=== PATIENT | female | born 1990 | race Caucasian/White ===

== ENCOUNTER 2017-09-20 16:28 | Observation (INO) ==
[2017-09-20 17:01] LABS: Bilirubin,Urine Negative (Negative); Blood,Urine Negative (Negative); Clarity,Urine Cloudy (Clear); Color,Urine Yellow (Yellow); Glucose,Urine (UA) Normal (Normal); Ketones,Urine Negative (Negative); Leukocyte Esterase,Urine Negative (Negative); Nitrite,Urine Negative (Negative); Protein,Urine Trace mg/dL (Neg-Trace); Specific Gravity,Urine 1.025 (1.010-1.025); Urobilinogen,Urine Normal (Normal)
[2017-09-20 17:04] LABS: Bacteria,Urine Many per hpf (None-Few); Squamous Epithelial Cell,Urine Many per lpf (None-Few); WBC,Urine 15-30 per hpf (0-3)
--- NOTE | 2017-09-20 17:10 | Emergency Department Note ---
Disposition Clinical Impression: Abdominal pain Disposition: Admitted As Inpatient Condition: Fair General Adult HPI - General Chief complaint: ED Abdominal Pain Stated complaint: Right flank pain Time Seen by Provider: 09/20/17 17:04 Source: patient - History of Present Illness Pain Scale: 5 - Related Data Home Medications Medication Instructions Recorded Confirmed Ibuprofen [Motrin] 400 mg PO Q6HR PRN 09/20/17 09/20/17 Allergies Allergy/AdvReac Type Severity Reaction Status Date / Time Penicillins Allergy Rash Verified 09/20/17 16:38 Past Medical History - Past Medical History Medical history: Reports: no medical history Psychiatric history: Reports: no psych history - Social History Smoking Status: Current every day smoker Smokeless Tobacco Status: No Alcohol use: Reports: occasionally Drug use: Reports: none Physical Exam - General General appearance: alert, in no apparent distress Course Vital Signs Temperature 97.8 F 09/20/17 16:35 Pulse Rate 98 09/20/17 16:35 Respiratory Rate 16 09/20/17 16:35 Blood Pressure 114/80 09/20/17 16:35 O2 Sat by Pulse Oximetry 98 09/20/17 16:35 Temperature 97.8 F 09/20/17 20:38 Pulse Rate 79 09/20/17 20:38 Respiratory Rate 14 09/20/17 20:38 Blood Pressure 118/77 09/20/17 20:38 O2 Sat by Pulse Oximetry 99 09/20/17 20:38 Oxygen Delivery Oxygen Delivery Room Air Medical Decision Making - Lab Data Result diagrams: 09/20/17 16:39 09/20/17 16:39 Lab Results 09/20/17 09/20/17 09/20/17 Range/Units 16:39 16:39 16:45 WBC 6.3 (4.3-11.1) K/mcL RBC 4.89 (3.82-4.97) M/mcL Hgb 15.0 (11.5-15.4) g/dL Hct 44.8 (35.3-44.9) % MCV 91.6 (83.0-100.0) fL MCH 30.7 (28.0-33.3) pg MCHC 33.5 (31.6-35.5) g/dL RDW 12.7 (11.5-14.5) % Plt Count 237 (140-400) K/mcL MPV 10.3 (9.4-12.4) fL Immature Gran % 0.3 (0-4) % Seg Neutrophils % 65.3 % Lymphocytes % 23.8 % Monocytes % 8.9 % Eosinophils % 1.4 % Basophils % 0.3 % Neutrophils # 4.1 (1.6-8.9) K/mcL Lymphocytes # 1.5 (0.6-4.6) K/mcL Monocytes # 0.6 (0.0-1.3) K/mcL Eosinophils # 0.1 (0.0-0.6) K/mcL Basophils # 0.0 (0.0-0.2) K/mcL Sodium 138 (136-145) mEq/L Potassium 4.2 (3.5-5.1) mEq/L Chloride 104 (98-107) mEq/L Carbon Dioxide 25 (23-29) mEq/L BUN 8 (6-20) mg/dL Creatinine 0.63 (0.60-1.20) mg/dL Est GFR ( Amer) > 60 (> 60) Est GFR (Non-Af Amer) > 60 (> 60) BUN/Creatinine Ratio 13 (6-26) Glucose 91 (70-105) mg/dL Calculated Osmolality 284 (280-300) Calcium 9.6 (8.6-10.3) mg/dL Total Bilirubin 0.4 (0.3-1.0) mg/dL Direct Bilirubin 0.1 (0.0-0.2) mg/dL Indirect Bilirubin 0.3 (0.0-1.2) mg/dL AST 17 (13-39) Units/L ALT 7 (7-52) Units/L Alkaline Phosphatase 60 (34-104) Units/L Serum Total Protein 7.9 (6.4-8.9) g/dL Albumin 5.1 (3.5-5.7) g/dL Globulin 2.8 (2.4-3.5) g/dL Albumin/Globulin Ratio 1.8 (1.1-2.2) Lipase 19 (11-82) Units/L Urine Color Yellow (Yellow) Urine Clarity Cloudy A (Clear) Urine pH 6.0 (5.0-8.0) pH Units Ur Specific [place] 1.025 (1.010-1.025) Urine Protein Trace (Neg-Trace) mg/dL Urine Glucose (UA) Normal (Normal) mg/dL Urine Ketones Negative (Negative) mg/dL Urine Blood Negative (Negative) Urine Nitrite Negative (Negative) Urine Bilirubin Negative (Negative) Urine Urobilinogen Normal (Normal) mg/dL Ur Leukocyte Esterase Negative (Negative) Urine Microscopic RBC 5-15 H (0-3) per hpf Urine Microscopic WBC 15-30 H (0-3) per hpf Ur Squamous Epith Cells Many H (None-Few) per lpf Urine Bacteria Many H (None-Few) per hpf Ur Culture Indicated? NO (NO) Urine Test (Negative) 09/20/17 Range/Units 16:45 WBC (4.3-11.1) K/mcL RBC (3.82-4.97) M/mcL Hgb (11.5-15.4) g/dL Hct (35.3-44.9) % MCV (83.0-100.0) fL MCH (28.0-33.3) pg MCHC (31.6-35.5) g/dL RDW (11.5-14.5) % Plt Count (140-400) K/mcL MPV (9.4-12.4) fL Immature Gran % (0-4) % Seg Neutrophils % % Lymphocytes % % Monocytes % % Eosinophils % % Basophils % % Neutrophils # (1.6-8.9) K/mcL Lymphocytes # (0.6-4.6) K/mcL Monocytes # (0.0-1.3) K/mcL Eosinophils # (0.0-0.6) K/mcL Basophils # (0.0-0.2) K/mcL Sodium (136-145) mEq/L Potassium (3.5-5.1) mEq/L Chloride (98-107) mEq/L Carbon Dioxide (23-29) mEq/L BUN (6-20) mg/dL Creatinine (0.60-1.20) mg/dL Est GFR ( Amer) (> 60) Est GFR (Non-Af Amer) (> 60) BUN/Creatinine Ratio (6-26) Glucose (70-105) mg/dL Calculated Osmolality (280-300) Calcium (8.6-10.3) mg/dL Total Bilirubin (0.3-1.0) mg/dL Direct Bilirubin (0.0-0.2) mg/dL Indirect Bilirubin (0.0-1.2) mg/dL AST (13-39) Units/L ALT (7-52) Units/L Alkaline Phosphatase (34-104) Units/L Serum Total Protein (6.4-8.9) g/dL Albumin (3.5-5.7) g/dL Globulin (2.4-3.5) g/dL Albumin/Globulin Ratio (1.1-2.2) Lipase (11-82) Units/L Urine Color (Yellow) Urine Clarity (Clear) Urine pH (5.0-8.0) pH Units Ur Specific [place] (1.010-1.025) Urine Protein (Neg-Trace) mg/dL Urine Glucose (UA) (Normal) mg/dL Urine Ketones (Negative) mg/dL Urine Blood (Negative) Urine Nitrite (Negative) Urine Bilirubin (Negative) Urine Urobilinogen (Normal) mg/dL Ur Leukocyte Esterase (Negative) Urine Microscopic RBC (0-3) per hpf Urine Microscopic WBC (0-3) per hpf Ur Squamous Epith Cells (None-Few) per lpf Urine Bacteria (None-Few) per hpf Ur Culture Indicated? (NO) Urine Test Negative (Negative) Attestation Statement - Attestation Attestation: I examined this patient and my medical decision-making was reviewed with the Resident Physician. I agree with the documented findings, disposition and treatment plan as described except to the extent set forth below. [id number] time provided Patient arrives with right flank pain. She appears uncomfortable on exam. She has tenderness with palpation to her right lower quadrant and mild rebound. She is unable to jump at bedside without reproduction of pain. I recommended a CT scan of her abdomen and pelvis. I evaluated this patient conjunction with the resident physician Dr. Olivo 17:57: I reassessed the patient. She continues to have right lower quadrant tenderness with rebound. She also has an obturator sign. I did request that the resident physician speak with the on-call surgeon for consultation 19:10: She has returned from the pelvic ultrasound that was recommended by the on-call surgeon. She continues to be symptomatic. She continues to have anorexia and right lower quadrant discomfort. Call again placed to the surgeon
[2017-09-20] MEDS ORDERED: Ketorolac 15 MG/ML VIAL IVP ONE (17:16)
[2017-09-20 17:20] LABS: Basophils % 0.3 %; Eosinophils # 0.1 K/mcL (0.0-0.6); Eosinophils % 1.4 %; Hematocrit 44.8 % (35.3-44.9); Immature Granulocytes % 0.3 % (0-4); Lymphocytes # 1.5 K/mcL (0.6-4.6); Lymphocytes % 23.8 %; Mean Corpuscular HGB Conc 33.5 g/dL (31.6-35.5); Mean Corpuscular Hemoglobin 30.7 pg (28.0-33.3); Mean Corpuscular Volume 91.6 fL (83.0-100.0); Mean Platelet Volume 10.3 fL (9.4-12.4); Monocytes # 0.6 K/mcL (0.0-1.3); Monocytes % 8.9 %; Neutrophils # 4.1 K/mcL (1.6-8.9); Platelet Count 237 K/mcL (140-400); Red Blood Count 4.89 M/mcL (3.82-4.97); Red Cell Distribution Width 12.7 % (11.5-14.5); Segmented Neutrophils % 65.3 %
[2017-09-20] MEDS ORDERED: Ondansetron 4 MG/2 ML VIAL IVP ONE (17:24)
--- NOTE | 2017-09-20 17:25 | Emergency Department Note ---
Disposition Clinical Impression: Abdominal pain Qualifiers: Abdominal location: right lower quadrant Qualified Code(s): R10.31 - Right lower quadrant pain Disposition: Admitted As Inpatient Condition: Fair Referrals: Sloan Paulson DO [Primary Care Provider] - Forms: ED Satisfaction Letter, Work/School Release Time of Disposition: 19:21 Abdominal Pain HPI - General Chief Complaint: ED Abdominal Pain Stated Complaint: Right flank pain Time Seen by Provider: 09/20/17 17:04 Source: patient Mode of arrival: ambulatory Limitations: no limitations - History of Present Illness HPI Narrative: Chioma Oropeza is a 27 year old female presenting with 2 days of constant, progressive right lower quadrant pain. She describes the pain as dull and achey with occasional sharpness. Intensity is 6/10. It radiates into her back. It is improved in certain positions and by compressing the area. Ibuprofen did not help. She admits to anorexia, fever, nausea, vomiting, and diarrhea. She denies chills and shortness of breath. Pain Scale: 5 - Related Data Allergies Allergy/AdvReac Type Severity Reaction Status Date / Time Penicillins Allergy Rash Verified 09/20/17 16:38 Constitutional: Reports: fever. Denies: chills Respiratory: Denies: dyspnea Gastrointestinal: Reports: abdominal pain, nausea, vomiting, diarrhea. Denies: melena, hematochezia Genitourinary: Denies: urgency, dysuria, frequency, hematuria Musculoskeletal: Reports: back pain Abdominal Pain PMH - Past Medical History Medical history: Reports: no medical history Female Surgical History: Reports: Tonsillectomy Psychiatric history: Reports: no psych history - Social History Smoking status: Current every day smoker Alcohol use: Reports: occasionally Drug use: Reports: none Physical Exam - General General appearance: alert, in no apparent distress - Head Head exam: atraumatic, normocephalic - Respiratory Respiratory exam: Present: normal lung sounds bilaterally. Absent: respiratory distress, accessory muscle use - Cardiovascular Cardiovascular exam: Present: regular rate, normal rhythm, normal heart sounds, +S1, +S2 - Abdominal Exam Abdominal exam: Present: soft, guarding, rebound, normal bowel sounds, psoas sign, obturator sign, heel tap sign, Rovsing's sign, tenderness at McBur[place]'s Point. Absent: distention Abdominal tenderness: Present: RLQ, moderate - Neurological Exam Neurological exam: Present: alert, oriented X3 - Psychiatric Psychiatric exam: Present: normal affect, normal mood - Skin Skin exam: Present: warm, dry Course Course Narrative: Patient presents with RLQ pain. Differential of appendicitis vs. kidney stone vs. ovarian pathology. Vital signs without abnormality. Urinalysis, test, CBC, and BMP without significant abnormality. CT abd/pelv without contrast was ordered, but did not show acute pathology. Tramadol and zofran were administered, which lessened the pain to a small degree. Patient continued to exhibit rebound tenderness. Case was discussed with the on-call surgeon, Dr. Strong, who suggested pelvic ultrasound. Transvaginal pelvic US with doppler showed dominant cyst on the right, but was otherwise negative. Dr. Cobb discussed case with Dr. Strong, who accepted the patient to his service. Requested 3A with bed management. Due to the patients continued pain, 25 mcg of fentanyl was administered. Vital Signs Temperature 97.8 F 09/20/17 16:35 Pulse Rate 98 09/20/17 16:35 Respiratory Rate 16 09/20/17 16:35 Blood Pressure 114/80 09/20/17 16:35 O2 Sat by Pulse Oximetry 98 09/20/17 16:35 Temperature 97.8 F 09/20/17 16:35 Pulse Rate 98 09/20/17 16:35 Respiratory Rate 16 09/20/17 16:35 Blood Pressure 114/80 09/20/17 16:35 O2 Sat by Pulse Oximetry 98 09/20/17 16:35 Oxygen Delivery Oxygen Delivery Room Air Abdominal Pain - Medical Records Medical records reviewed: Yes I reviewed the patient's medical records. - Lab Data Lab results reviewed: Yes I reviewed the patient's lab results. Result diagrams: 09/20/17 16:39 09/20/17 16:39 Lab Results 09/20/17 09/20/17 09/20/17 Range/Units 16:39 16:39 16:45 WBC 6.3 (4.3-11.1) K/mcL RBC 4.89 (3.82-4.97) M/mcL Hgb 15.0 (11.5-15.4) g/dL Hct 44.8 (35.3-44.9) % MCV 91.6 (83.0-100.0) fL MCH 30.7 (28.0-33.3) pg MCHC 33.5 (31.6-35.5) g/dL RDW 12.7 (11.5-14.5) % Plt Count 237 (140-400) K/mcL MPV 10.3 (9.4-12.4) fL Immature Gran % 0.3 (0-4) % Seg Neutrophils % 65.3 % Lymphocytes % 23.8 % Monocytes % 8.9 % Eosinophils % 1.4 % Basophils % 0.3 % Neutrophils # 4.1 (1.6-8.9) K/mcL Lymphocytes # 1.5 (0.6-4.6) K/mcL Monocytes # 0.6 (0.0-1.3) K/mcL Eosinophils # 0.1 (0.0-0.6) K/mcL Basophils # 0.0 (0.0-0.2) K/mcL Sodium 138 (136-145) mEq/L Potassium 4.2 (3.5-5.1) mEq/L Chloride 104 (98-107) mEq/L Carbon Dioxide 25 (23-29) mEq/L BUN 8 (6-20) mg/dL Creatinine 0.63 (0.60-1.20) mg/dL Est GFR ( Amer) > 60 (> 60) Est GFR (Non-Af Amer) > 60 (> 60) BUN/Creatinine Ratio 13 (6-26) Glucose 91 (70-105) mg/dL Calculated Osmolality 284 (280-300) Calcium 9.6 (8.6-10.3) mg/dL Total Bilirubin 0.4 (0.3-1.0) mg/dL Direct Bilirubin 0.1 (0.0-0.2) mg/dL Indirect Bilirubin 0.3 (0.0-1.2) mg/dL AST 17 (13-39) Units/L ALT 7 (7-52) Units/L Alkaline Phosphatase 60 (34-104) Units/L Serum Total Protein 7.9 (6.4-8.9) g/dL Albumin 5.1 (3.5-5.7) g/dL Globulin 2.8 (2.4-3.5) g/dL Albumin/Globulin Ratio 1.8 (1.1-2.2) Lipase 19 (11-82) Units/L Urine Color Yellow (Yellow) Urine Clarity Cloudy A (Clear) Urine pH 6.0 (5.0-8.0) pH Units Ur Specific [place] 1.025 (1.010-1.025) Urine Protein Trace (Neg-Trace) mg/dL Urine Glucose (UA) Normal (Normal) mg/dL Urine Ketones Negative (Negative) mg/dL Urine Blood Negative (Negative) Urine Nitrite Negative (Negative) Urine Bilirubin Negative (Negative) Urine Urobilinogen Normal (Normal) mg/dL Ur Leukocyte Esterase Negative (Negative) Urine Microscopic RBC 5-15 H (0-3) per hpf Urine Microscopic WBC 15-30 H (0-3) per hpf Ur Squamous Epith Cells Many H (None-Few) per lpf Urine Bacteria Many H (None-Few) per hpf Ur Culture Indicated? NO (NO) Urine Test (Negative) 09/20/17 Range/Units 16:45 WBC (4.3-11.1) K/mcL RBC (3.82-4.97) M/mcL Hgb (11.5-15.4) g/dL Hct (35.3-44.9) % MCV (83.0-100.0) fL MCH (28.0-33.3) pg MCHC (31.6-35.5) g/dL RDW (11.5-14.5) % Plt Count (140-400) K/mcL MPV (9.4-12.4) fL Immature Gran % (0-4) % Seg Neutrophils % % Lymphocytes % % Monocytes % % Eosinophils % % Basophils % % Neutrophils # (1.6-8.9) K/mcL Lymphocytes # (0.6-4.6) K/mcL Monocytes # (0.0-1.3) K/mcL Eosinophils # (0.0-0.6) K/mcL Basophils # (0.0-0.2) K/mcL Sodium (136-145) mEq/L Potassium (3.5-5.1) mEq/L Chloride (98-107) mEq/L Carbon Dioxide (23-29) mEq/L BUN (6-20) mg/dL Creatinine (0.60-1.20) mg/dL Est GFR ( Amer) (> 60) Est GFR (Non-Af Amer) (> 60) BUN/Creatinine Ratio (6-26) Glucose (70-105) mg/dL Calculated Osmolality (280-300) Calcium (8.6-10.3) mg/dL Total Bilirubin (0.3-1.0) mg/dL Direct Bilirubin (0.0-0.2) mg/dL Indirect Bilirubin (0.0-1.2) mg/dL AST (13-39) Units/L ALT (7-52) Units/L Alkaline Phosphatase (34-104) Units/L Serum Total Protein (6.4-8.9) g/dL Albumin (3.5-5.7) g/dL Globulin (2.4-3.5) g/dL Albumin/Globulin Ratio (1.1-2.2) Lipase (11-82) Units/L Urine Color (Yellow) Urine Clarity (Clear) Urine pH (5.0-8.0) pH Units Ur Specific [place] (1.010-1.025) Urine Protein (Neg-Trace) mg/dL Urine Glucose (UA) (Normal) mg/dL Urine Ketones (Negative) mg/dL Urine Blood (Negative) Urine Nitrite (Negative) Urine Bilirubin (Negative) Urine Urobilinogen (Normal) mg/dL Ur Leukocyte Esterase (Negative) Urine Microscopic RBC (0-3) per hpf Urine Microscopic WBC (0-3) per hpf Ur Squamous Epith Cells (None-Few) per lpf Urine Bacteria (None-Few) per hpf Ur Culture Indicated? (NO) Urine Test Negative (Negative) - Radiology Data Radiology results reviewed: Yes I reviewed the patient's radiology results.
[2017-09-20 17:59] LABS: Alanine Aminotransferase 7 Units/L (7-52); Albumin 5.1 g/dL (3.5-5.7); Albumin/Globulin Ratio 1.8 (1.1-2.2); Alkaline Phosphatase 60 Units/L (34-104); Aspartate Amino Transferase 17 Units/L (13-39); BUN/Creatinine Ratio 13 (6-26); Bilirubin,Direct 0.1 mg/dL (0.0-0.2); Bilirubin,Indirect 0.3 mg/dL (0.0-1.2); Bilirubin,Total 0.4 mg/dL (0.3-1.0); Blood Urea Nitrogen 8 mg/dL (6-20); Calcium 9.6 mg/dL (8.6-10.3); Carbon Dioxide 25 mEq/L (23-29); Chloride 104 mEq/L (98-107); Globulin 2.8 g/dL (2.4-3.5); Glucose 91 mg/dL (70-105); Lipase 19 Units/L (11-82); Osmolality,Calculated 284 (280-300); Potassium 4.2 mEq/L (3.5-5.1); Sodium 138 mEq/L (136-145); Total Protein 7.9 g/dL (6.4-8.9); eGFR For African Americans > 60 (> 60); eGFR For Non-African Americans > 60 (> 60)
[2017-09-20] MEDS ORDERED: *HR* FentaNYL (PF) 100 MCG/2 ML VIAL IVP ONE (19:14)
[2017-09-20] MEDS ORDERED: *HR* OxyCODONE/APAP 10/325 TABLET PO PRN (20:10)
[2017-09-20] MEDS ORDERED: Ondansetron 4 MG/2 ML VIAL IVP PRN (20:10)
[2017-09-20] MEDS ORDERED: 0.9 % Sodium Chloride 1,000 ML IVC SCH (20:15)
--- NOTE | 2017-09-20 20:15 | General Surg History&Physical ---
Date of Encounter: 09/20/17 Time of Encounter: 19:40 Assessment and Plan (1) Abdominal pain Current Visit: Yes Status: Acute The assessment and plan as outlined above was discussed with the patient and/or family members who expressed understanding and agreement. All questions were answered. The patient has right lower quadrant abdominal pain. The white blood cell count is normal and CAT scan demonstrates no evidence of acute appendicitis. Although her history is suggestive of appendicitis, findings could also be consistent with mittelschmerz or ruptured corpus luteum cyst. I discussed this with the patient and the family and I think that 12 hours of observation is warranted with repeat physical examination Qualifiers: Abdominal location: right lower quadrant Qualified Code(s): R10.31 - Right lower quadrant pain History of Present Illness Chief complaint: Right Lower quadrant abdominal pain HPI: Ms. Oropeza is a 27 year old female Who began having abdominal pain this morning. This was sudden in onset. After she developed pain in the right lower quadrant she also had nausea vomiting and diarrhea. Her right lower quadrant abdominal discomfort lasted throughout the day. She sought evaluation in the emergency room. A CAT scan of the abdomen was performed. The CAT scan was essentially negative with no findings in the periappendiceal tissues. There were no findings in the mesentery. No findings in the ovary. White blood cell count was normal. The patient underwent pelvic ultrasound and there does appear to be a 2.5 cm nodule in the right ovary. This may be consistent with a ruptured corpus luteum. The differential diagnosis certainly includes very early appendicitis with no findings on CAT scan or laboratory values. Findings may also be consistent with mittelschmerz or ruptured ovarian cyst. At this point I think a period of observation is warranted. She will be admitted to the hospital and given IV fluids and bowel rest. We will repeat her physical examination laboratory testing in the morning. Past Med Surg Social Fam HX - Past Medical History Medical history: no medical history Psychiatric history: no psych history - Social History Smoking Status: Current every day smoker Smokeless Tobacco Status: No Alcohol use: occasionally Drug use: none Medications and Allergies Ibuprofen [Motrin] 400 mg PO Q6HR PRN 09/20/17 [History] 3 Allergy/AdvReac Type Severity Reaction Status Date / Time Penicillins Allergy Rash Verified 09/20/17 16:38 Review of Systems All systems PM: The remainder of the systems were reviewed and are negative General Surgery Exam Initial Vital Signs Temp Pulse Resp BP Pulse Ox 97.8 F 98 16 114/80 98 09/20/17 16:35 09/20/17 16:35 09/20/17 16:35 09/20/17 16:35 09/20/17 16:35 - General physical appearance well developed, well nourished, no distress - Neck no masses, no bruits, trachea midline, no lymphadectomy, no venous distension - Respiratory normal expansion, normal respiratory effort, clear to percussion, clear to auscultation - Cardiovascular Cardiovascular exam: Present: RRR, no murmurs/rubs/gallops - Abdomen Abdomen general surgery: Present: bowel sounds present, soft Abdominal Tenderness: Present: RLQ (Pain to moderate to deep palpation. No guarding and no rebound. No pain on the left side of the abdomen) - Neurologic Present: CN 2-12 grossly intact, normal coordination, normal sensation - Psychiatric Psychiatric general surgery: Present: appropriate, oriented to person, oriented to place, oriented to time, speech is normal, memory intact Results - Labs 09/20/17 16:39 09/20/17 16:39 Abnormal lab results Urine Clarity Cloudy (Clear) A 09/20/17 16:45 Urine Microscopic RBC 5-15 per hpf (0-3) H 09/20/17 16:45 Urine Microscopic WBC 15-30 per hpf (0-3) H 09/20/17 16:45 Ur Squamous Epith Cells Many per lpf (None-Few) H 09/20/17 16:45 Urine Bacteria Many per hpf (None-Few) H 09/20/17 16:45 All other labs normal. - Imaging CT scan - abdomen: image reviewed (Personally reviewed the CAT scan the abdomen. I cannot identify any findings consistent with acute appendicitis.) US - abdomen: image reviewed (I personally reviewed the ultrasound of the pelvis. She appears to have multiple areas on the right ovary the largest of which is 1.7 cm in size this may be consistent with corpus luteum cyst) - VTE Reasons for not Prescribing Prophylaxis: Treatment not Indicated - Low risk for VTE
[2017-09-20] MEDS: Nicotine 21 MG PATCH.TD24 TD SCH (21:19)
[2017-09-21 08:06] LABS: Basophils % 0.6 %; Eosinophils # 0.1 K/mcL (0.0-0.6); Eosinophils % 1.9 %; Hematocrit 37.5 % (35.3-44.9); Immature Granulocytes % 0.2 % (0-4); Lymphocytes # 1.8 K/mcL (0.6-4.6); Mean Corpuscular HGB Conc 32.8 g/dL (31.6-35.5); Mean Corpuscular Hemoglobin 30.5 pg (28.0-33.3); Mean Corpuscular Volume 93.1 fL (83.0-100.0); Mean Platelet Volume 10.2 fL (9.4-12.4); Monocytes # 0.5 K/mcL (0.0-1.3); Monocytes % 10.7 %; Neutrophils # 2.4 K/mcL (1.6-8.9); Platelet Count 180 K/mcL (140-400); Red Blood Count 4.03 M/mcL (3.82-4.97); Red Cell Distribution Width 12.7 % (11.5-14.5); Segmented Neutrophils % 49.6 %
[2017-09-21] MEDS: Nicotine 21 MG PATCH.TD24 TD SCH (08:13)
[2017-09-21 08:14] LABS: Hemoglobin 12.3 g/dL (11.5-15.4)
[2017-09-21 08:24] LABS: BUN/Creatinine Ratio 16 (6-26); Blood Urea Nitrogen 10 mg/dL (6-20); Calcium 8.4 mg/dL (8.6-10.3); Carbon Dioxide 24 mEq/L (23-29); Chloride 110 mEq/L (98-107); Glucose 81 mg/dL (70-105); Osmolality,Calculated 288 (280-300); Potassium 3.7 mEq/L (3.5-5.1); Sodium 140 mEq/L (136-145); eGFR For African Americans > 60 (> 60); eGFR For Non-African Americans > 60 (> 60)
[2017-09-21 10:57] VITALS: BP 111/73
--- NOTE | 2017-09-21 11:13 | Discharge Summary ---
<Chayito Lujan - Last Filed: 09/21/17 11:10> Date of Encounter: 09/21/17 Time of Encounter: 11:23 - Discharge Diagnosis (1) Abdominal pain Priority: Primary Status: Acute Comments: The patient presented to the emergency department on 09/20/2017 for right lower quadrant abdominal pain. The white blood cell count is normal and CAT scan demonstrates no evidence of acute appendicitis. Although her history is suggestive of appendicitis, findings could also be consistent with mittelschmerz or ruptured corpus luteum cyst. Patient is awake, alert, interactive, afebrile, and appears in no acute distress. Repeat laboratory work shows that the white blood cell count is normal. Repeat physical examination demonstrated mild tenderness in the right lower quadrant. Negative Rovsing's sign. No tenderness at the McBurney's point. Bowel sounds present in all 4 quadrants. Soft. No rigid, guarding, or rebound. Patient tolerates clear liquid diet without any difficulty, nausea, and vomiting. Patient has no other concerns at this time Qualifiers: Abdominal location: right lower quadrant Qualified Code(s): R10.31 - Right lower quadrant pain General Surgery Exam Initial Vital Signs Temp Pulse Resp BP Pulse Ox 97.8 F 98 16 114/80 98 09/20/17 16:35 09/20/17 16:35 09/20/17 16:35 09/20/17 16:35 09/20/17 16:35 - General physical appearance well developed, well nourished, no distress - Eyes PERRL, normal ocular movement - ENT normal mucosa - Neck trachea midline - Respiratory normal expansion, normal respiratory effort, clear to auscultation - Cardiovascular Cardiovascular exam: Present: RRR, no murmurs/rubs/gallops - Abdomen Abdomen general surgery: Present: bowel sounds present, soft, tender (Mild tender to palpation in the RLQ. Significantly improved compare to yesterday). Absent: distended, guarding, rebound, rigid Hernia: Present: none - Integumentary Integumentary general surgery: Present: warm and dry, no abnormal pigmentation - Neurologic Present: CN 2-12 grossly intact - Psychiatric Psychiatric general surgery: Present: appropriate, oriented to person, oriented to place, oriented to time, speech is normal - Hospital Course Hospital course: Ms. Oropeza is a 27 year old female with no significant past medical history who presented to the emergency department on 09/20/2017 complaining of abdominal pain. The patient states that the abdominal pain started that morning and was sudden onset. She describes the pain as constant, sharp, sudden onset, in the right lower quadrant with associated nausea, vomiting, and diarrhea.Her right lower quadrant abdominal discomfort lasted throughout the day. She sought evaluation in the emergency room. A CAT scan of the abdomen was performed and was essentially negative with no findings in the periappendiceal tissues. There were no findings in the mesentery. No findings in the ovary. White blood cell count was normal. The patient underwent pelvic ultrasound and there does appear to be a 2.5 cm nodule in the right ovary. This may be consistent with a ruptured corpus luteum. The differential diagnosis certainly includes very early appendicitis with no findings on CAT scan or laboratory values. Findings may also be consistent with mittelschmerz or ruptured ovarian cyst. Patient was admitted to the hospital for observation and given IV fluids and bowel rest. Repeat physical examination and laboratory testing in the morning. Repeat laboratory work shows that the white blood cell count is normal. Repeat physical examination demonstrated mild tenderness in the right lower quadrant but is significantly improved since yesterday. Negative Rovsing's sign. No tenderness at the McBurney's point. Bowel sounds present in all 4 quadrants. Soft. No rigid, guarding, or rebound. Patient tolerates clear liquid diet without any difficulty, nausea, and vomiting. The patient was instructed to follow up with her primary care physician within one week and [facility] physician within 2 to 3 weeks. The patient verbalizes understanding. The patient was also instructed to return to the hospital if her symptoms worsen or if there are any other concerns. The patient denies any fever, headaches, vision changes , near syncope, chest pain, shortness of breath, diarrhea, blood in her stool, urinary symptoms, nausea, vomiting, and any weaknesses at this time. Patient has no other concerns at this time. - Time Spent with Patient Total time spent providing and/or coordinating discharge services: - Discharge Medications Home Medications: Ibuprofen [Motrin] 400 mg PO Q6HR PRN 09/20/17 [History] Allergies/Adverse Reactions: 3 Allergy/AdvReac Type Severity Reaction Status Date / Time Penicillins Allergy Rash Verified 09/20/17 16:38 Date of admission: 09/20/17 19:33 Primary care physician: Sloan Paulson DO Labs on day of discharge: Labs from last 24 hours 09/21/17 09/21/17 09/21/17 07:38 07:38 05:39 WBC 4.8 RBC 4.03 Hgb 12.3 D Hct 37.5 MCV 93.1 MCH 30.5 MCHC 32.8 RDW 12.7 Plt Count 180 MPV 10.2 Immature Gran % 0.2 Seg Neutrophils % 49.6 Lymphocytes % 37.0 Monocytes % 10.7 Eosinophils % 1.9 Basophils % 0.6 Neutrophils # 2.4 Lymphocytes # 1.8 Monocytes # 0.5 Eosinophils # 0.1 Basophils # 0.0 Sodium 140 Potassium 3.7 Chloride 110 H Carbon Dioxide 24 BUN 10 Creatinine 0.61 Est GFR ( Amer) > 60 Est GFR (Non-Af Amer) > 60 BUN/Creatinine Ratio 16 Glucose 81 POC Glucose 82 Calculated Osmolality 288 Calcium 8.4 L - Patient Status Disposition: Home, Self-Care Condition: Good Functional capacity at discharge: independent ambulation Overall status at discharge: patient is progressing back to baseline - Discharge Instructions Instructions: Ovarian Cyst (DC) Follow Up With: Bryanna Carcamo, [facility] [employer] [employer] [Advanced Practice Nurse] - 09/27/17 2:00 pm [facility],PCP [Non-Partnered Physician] - (The office for OBGYN will give the patient a call at home with her appt. date and time. Thank you) Forms: Inpatient Work/School Release Additional Instructions: 1. Please follow up with your primary care physician within one week. 2. Please continue all of your home medications as prescribed. 3 Please follow up with your [facility] within 2-3 weeks. 5. Please return to the hospital for new or worsening symptoms. - Diet and Activity Activity: increase activity as tolerated Diet: advance to your usual diet <Abdias Strong - Last Filed: 09/27/17 15:45> Date of Encounter: 09/21/17 - Discharge Diagnosis (1) Abdominal pain Status: Acute Qualifiers: Abdominal location: right lower quadrant Qualified Code(s): R10.31 - Right lower quadrant pain General Surgery Exam Initial Vital Signs Temp Pulse Resp BP Pulse Ox 97.8 F 98 16 114/80 98 09/20/17 16:35 09/20/17 16:35 09/20/17 16:35 09/20/17 16:35 09/20/17 16:35 - Hospital Course Hospital course: Ms. Oropeza is a 27 year old female - Time Spent with Patient Total time spent providing and/or coordinating discharge services: Date of admission: 09/20/17 19:33 Primary care physician: Sloan Paulson DO - Attending Attestation I examined this patient and my medical decision-making was reviewed with the Resident Physician. I agree with the documented findings, disposition and treatment plan as described except to the extent set forth below. The patient is seen and evaluated on morning rounds with the resident. She is recovering well from appendectomy and should be ready for discharge. Abdias Strong MD FACS
[2017-09-21] MEDS ORDERED: Ketorolac 15 MG/ML VIAL IVP SCH (12:00)
== END 2017-09-21 16:37 | disposition home or self-care (01) ==
LOC: EMEROO 16:28 → 3ANU 16:28
PROVIDERS: ADMIT Surgery; ATTEND Surgery